=== PATIENT | female | born 2000 | race Caucasian/White ===

== ENCOUNTER 2018-05-30 15:00 | Inpatient (IN) | payer OTHER ==
[~2018-05-30] VITALS: Ht 154.9 cm; Wt 83.5 kg
[2018-06-23] MEDS ORDERED: PRENATAL 19 TA1 EAC1 PO (08:04)
== END 2018-06-26 11:53 | DRG 788 ==
LOC: OB/GYN 06-21 15:00 → LDR 06-23 07:03 → OB/GYN 06-23 07:03 → LDR 06-23 14:04 → O/R 06-23 21:26 → OB/GYN 06-23 23:47
PROVIDERS: ADMIT Specialist
PROC: 3E0P7VZ Introduction of Hormone into Female Reproductive, Via Natural or Artificial Opening (ICD-10-PCS; 2018-06-23)
PROC: 3E033VJ Introduction of Other Hormone into Peripheral Vein, Percutaneous Approach (ICD-10-PCS; 2018-06-23)
PROC: 4A1HXCZ Monitoring of Products of Conception, Cardiac Rate, External Approach (ICD-10-PCS; 2018-06-23)
PROC: 10D00Z1 Extraction of Products of Conception, Low, Open Approach (ICD-10-PCS; principal; 2018-06-23 21:00)
DX: O76 Abnormality in fetal heart rate and rhythm complicating labor and delivery (principal); O62.0 Primary inadequate contractions; Z3A.40 40 weeks gestation of pregnancy; Z37.0 Single live birth

== ENCOUNTER 2020-06-13 09:24 | Inpatient (IN) | payer OTHER ==
[~2020-06-13] VITALS: Ht 154.9 cm; Wt 85.7 kg
[~2020-06-13 09:24] MED LIST: PRENATAL 19 TA1 EAC1 PO
[2020-06-15] MEDS ORDERED: PERCOCET 5-3251 EACH PO (09:30)
[2020-06-15] MEDS ORDERED: SURFAK240 M1 PO (09:30)
== END 2020-06-15 15:57 | disposition home or self-care (01) | DRG 785 ==
LOC: LDR 09:24 → OB/GYN 09:24 → O/R 16:30 → OB/GYN 19:41
PROVIDERS: ADMIT Specialist; ATTEND Specialist
PROC: 0UB70ZZ Excision of Bilateral Fallopian Tubes, Open Approach (ICD-10-PCS; 2020-06-13)
PROC: 4A1HXFZ Monitoring of Products of Conception, Cardiac Rhythm, External Approach (ICD-10-PCS; 2020-06-13)
PROC: 10D00Z1 Extraction of Products of Conception, Low, Open Approach (ICD-10-PCS; principal; 2020-06-13 15:00)
DX: O34.211 Maternal care for low transverse scar from previous cesarean delivery (principal); Z3A.39 39 weeks gestation of pregnancy; Z37.0 Single live birth; Z30.2 Encounter for sterilization; Z20.828 Contact with and (suspected) exposure to other viral communicable diseases